=== PATIENT | male | born 1950 | race Caucasian/White ===

== ENCOUNTER → 2020-09-11 | Outpatient (CLI) | payer OTHER | END | disposition home or self-care (01) | LOC: SHCH 08:28 | PROVIDERS: ATTEND Internal Medicine Cardiovascular Disease | DX: I34.0 Nonrheumatic mitral (valve) insufficiency (principal) | CPT/HCPCS: 93306; 93356 ==

== ENCOUNTER 2025-04-08 05:51 | Observation (INO) | payer OTHER, MEDICARE ==
[2025-04-03 11:40] VITALS: BP 156/67; PULSE 53; RESP 17; TEMP 97.8
--- NOTE | 2025-04-03 13:16 | NUR ---
preop hugo rt instructed pt on incentive spirometry
[~2025-04-08] VITALS: Ht 180.3 cm; Wt 90.7 kg
[2025-04-08] VITALS (16 sets, daily range): BP systolic 109–175; BP diastolic 54–75; PULSE 68–90; RESP 14–18; TEMP 97.6–98.8; O2SAT 92
[2025-04-08] MEDS: 0.9%NACL 1000ML 1,000 ML IV ONE (06:08)
[2025-04-08] MEDS ORDERED: TRANEXAMIC ACID 1000MG/10ML ONE (06:25)
[2025-04-08] MEDS ORDERED: MIDAZOLAM HCL 1 MG/ML 2ML VIAL ONE (06:49)
[2025-04-08] MEDS: TRANEXAMIC ACID 1000MG/10ML IV ONE ×3 (07:30→09:07)
[2025-04-08] MEDS ORDERED: FERROUS FUMARATE 324 MG TABLET PO PRN (09:30)
[2025-04-08] MEDS ORDERED: CYCLOBENZAPRINE HCL 10 MG TABLET PO PRN (09:30)
[2025-04-08] MEDS ORDERED: PoTASSium chl 10% ELIXIR 20MEQ 20 MEQ/15 ML UDCUP PO PRN (09:30)
[2025-04-08] MEDS ORDERED: PROMETHAZINE HCL 25 MG/ML 1ML AMPULE IM PRN (09:30)
[2025-04-08] MEDS ORDERED: PoTASSium chloRIDE 20MEQ ER 20 MEQ ERTAB PO PRN (09:30)
[2025-04-08] MEDS ORDERED: GLYCOPYRROLATE 0.2 MG/ML 5 ML VIAL ONE (09:33)
[2025-04-08] MEDS ORDERED: NEOSTIGMINE METHYLSULFATE 1MG/ML IV ONE (09:33)
--- NOTE | 2025-04-08 10:42 | HMCIMG ---
EXAM: CR Left Knee, 2 Views. CLINICAL HISTORY: S/P LEFT TKA SURGERY COMPARISON: None provided. FINDINGS: BONES: No acute fracture or aggressive appearing osseous lesion. Knee implant present JOINTS: The joint spaces show no significant degenerative disease. There is a mild joint effusion appreciated. SOFT TISSUES: The soft tissues are edematous around the knee joint IMPRESSION: Left knee implant present, with no evidence of fracture or dislocation. No acute osseous pathology is evident. Mild soft tissue swelling around the knee joint and mild joint effusion in the suprapatellar bursa, present consequence of postoperative changes /[place]
--- NOTE | 2025-04-08 10:55 | NUR ---
PATIENT ARRIVED TO UNIT. VS: 114/59, 92 %SP02 ON RA, 83 BPM. PATIENT A&OX4. NO PAIN PER PATIENT. PATIENT WAS EDUCATED ON THE IMPORTANCE OF CALLING NURSE WHEN IN PAIN. REINFORCED TEACHING ON IS EVERY 2 HOURS WHILE AWAKE. RT WAS CALLED FOR A NEW IS TO BE BROUGHT TO PATIENTS ROOM. PT WAS MADE AWARE OF PATIENTS ARRIVAL TO THE UNIT.
[2025-04-08] MEDS: 0.9%NACL 1000ML 1,000 ML IV SCH (11:55)
--- NOTE | 2025-04-08 14:42 | OP ---
Operative Note: DATE OF PROCEDURE: 04/08/25 PREOPERATIVE DIAGNOSIS: Left knee osteoarthritis. POSTOPERATIVE DIAGNOSIS: Left knee osteoarthritis. PROCEDURE PERFORMED: Left knee total knee arthroplasty. SURGEON: Virgie Mejia MD SET UP MECHANIC STAMPING MACHINES: Kaz Britton. ANESTHESIA: General with adductor canal block. ANESTHESIA: CARRIAGE RIDER [place] raya. ESTIMATED BLOOD LOSS: 50cc. COMPLICATIONS: None. DRAINS: None. SPECIMENS REMOVED: resected bone. Not sent to pathology. IMPLANTS: [employer] II BCS size 7 Oxinium femur, size 6 tibial base plate, 35 mm patella, 12 mm polyethylene STATEMENT OF MEDICAL NECESSITY: The patient is a 75-year-old male who suffers from left knee osteoarthritis failing conservative management. After discussion of the risks, benefits, and alternatives with the patient, they voluntarily agreed to undergo the aforementioned procedure. DESCRIPTION OF PROCEDURE: Patient was properly identified in the preoperative holding area. Surgical site marking was verified and surgery consent reviewed. The patient was then taken to the operating room and placed in supine position on the OR table. After induction of general anesthesia, preoperative antibiotics were given, all bony prominences were well-padded, and a well padded tourniquet was applied but not inflated at this time. The left lower extremity was then prepped and draped in usual sterile fashion. Surgical time out was done verifying correct surgery, side, site, and location to be performed. We then began the procedure by exsanguinating the limb using an Esmarch and inflating the tourniquet to 350 mmHg. At this point, we made an anterior midline incision using a 10 blade, coming down sharply the level of the fascia. Skin flaps were elevated medially and laterally. We then obtained a clean 10 blade and performed a standard medial parapatellar arthrotomy. We excised the infrapatellar fat pad. We performed our soft tissue releases off of the tibia. We transected the ACL and removed the anterior portion of the medial & lateral meniscus. We then brought the knee into hyperflexion with the patella everted. We used our entry reamer to enter the femoral canal. We then placed our intramedullary cutting guide for our distal femoral cutting block. We then performed our distal femoral osteotomy ensuring appropriate rotation and removed the bony wafer. We then removed these pins and block and then used jig 2 to size the distal femur with the after mentioned size found. We then placed our 5-in-1 cutting block in 3 degrees of external rotation and took our 5 cuts ensuring to protect the patellar tendon and the collateral ligaments. We then removed the cutting block and our bony fragments using a curved osteotome. We then placed our PCL retractor subluxating the tibia anteriorly. Using an extra medullary tibial cutting guide, we hung the block for our proximal tibial cut taking 2 mm off the more diseased portion. Prior to pinning this block in place, we ensured appropriate varus/valgus alignment and posterior slope similar to the [place] slope of the patient's knee. We then performed our proximal tibial osteotomy and removed the bony wafer using Bovie electrocautery to release any remaining soft tissue attachments. We then used our tibial sizing paddle and checked once more for varus & valgus alignment and found this to be appropriate. At this point, we pinned our tibial paddle in place. We then removed the PCL retractor and subluxated the tibia posteriorly while we placed our femoral trial component. We then finished preparing the notch with the reamer and box chisel. The notch portion of the trial femoral component was then placed. A posterior stabilized polyethylene, size 9 trial was placed. This was immediately increased up to a size 11 polyethylene trial due to laxity with varus and valgus stress. The knee was then taken through range of motion and found to have stable full range of motion. We then placed a bump under the ankle and everted the patella to perform our freehand cut of the undersurface the patella. We then sized our patella and reamed to the lug holes for this. We placed our trial patellar component and begin to take the knee through range of motion. The patella had significant lateral tracking that improved after a lateral release. At this point we began removing our trial components and punched the tibial keel prior to removing our tibial trial component. Final components were opened and cement was mixed on the back table while we injected local cocktail in the posterior capsule. We then thoroughly irrigated out the bone and dried the bony surfaces. We cemented our tibial component in place ensuring to remove excess cement and placed our trial polyethylene. We then cemented our femoral component in place once again taking time to ensure excess cement was removed leg was brought into full extension to help squeeze the excess cement from around the femoral component. We then brought the knee back in a flexion to remove this portion of the cement at this point we placed the ankle in a bump thoroughly irrigated off the patellar component and cemented our patellar component in standard fashion again removing excess cement. While we waited for the cement to cure, we thoroughly irrigated out the wound with normal saline. Once our cement had cured, we took the knee through a range of motion and found full and stable range of motion. We then elected to use the size 12 polyethylene and removed our trial polyethylene. We impacted our final polyethylene component in place in standard fashion and took the knee through a range of motion check once more. This was satisfactory so we began to repair the arthrotomy using #5 Ethibond and #1 Vicryl in interrupted [id number] fashion. Subcutaneous tissue was repaired using 2-0 Vicryl. Running subcuticular 3-0 Monocryl stitch with Dermabond placed over this for the skin. We then applied a foam barrier dressing and a pressure dressing consisting of 4 x 4's fluffs and an Luca wrap. The tourniquet was then deflated. Patient was awakened from anesthesia, and they were taken to the recovery room in stable condition. VIRGIE MEJIA MD Apr 08, 2025 14:42
--- NOTE | 2025-04-08 15:15 | NUR ---
ORTHO COORDINATOR: PATIENT SLEEPING. B SCD SLEEVES IN PLACE AND FUNCTIONING.
--- NOTE | 2025-04-08 15:24 | NUR ---
PT WAS SITTING ON THE CHAIR. ASSESSED PT PAIN LEVEL, PT VERBALIZED HE HAS NO PAIN. PT TEACHING WAS REINFORCED TO CALL IF PAIN WAS FELT FOR MEDICATION ADMINISTRATION. PT VERBALIZED UNDERSTANDING. CALL LIGHT WITHIN REACH.
--- NOTE | 2025-04-08 16:16 | NUR ---
PATIENT VERBALIZED HE URINATED IN THE TOILET AND PHYSICAL THERAPY WALKED HIM TO THE BATHROOM.
[2025-04-09] VITALS (8 sets, daily range): BP systolic 128–144; BP diastolic 67–86; PULSE 82–109; RESP 16–18; TEMP 97.8–99; O2SAT 91–100
[2025-04-09 04:09] LABS: NUCLEATED RED BLOOD CELLS 0.0 % (0.0-0.19); PLATELET COUNT (AUTO) 123.0 K/uL (130-400); RED BLOOD CELL COUNT(AUTO) 3.89 MIL/uL (4.50-6.20); RED CELL DISTRIBUTION WIDTH 13.2 % (11.0-15.5); WHITE BLOOD COUNT (AUTO) 7.8 K/uL (4.8-10.8)
[2025-04-09 04:23] LABS: CREATININE 1.0 mg/dL (0.5-1.3); GLOMERULAR FILTR. RATE CALC 78.0 mL/min (>90); GLUCOSE,RANDOM 128.0 mg/dL (70-105); SODIUM SERUM 143.0 mmol/L (136-145); UREA NITROGEN, BLOOD 20.0 mg/dL (7-18)
[2025-04-09] MEDS: EZETIMIBE 10 MG TAB PO SCH (08:24)
[2025-04-09] MEDS: CYANOCOBALAMIN (VITAMIN B-12) 1,000 MCG TABLET PO SCH (08:24)
[2025-04-09] MEDS: ASPIRIN 325MG EC TAB PO SCH (08:24)
[2025-04-09] MEDS: LISINOPRIL 5 MG TABLET PO SCH (08:25)
[2025-04-09] MEDS: EMPAGLIFLOZIN 25MG TABLET PO SCH (08:25)
[2025-04-09] MEDS: HYDROcodone/APAP 5/325 1 TAB TABLET PO PRN (08:25)
--- NOTE | 2025-04-09 11:00 | NUR ---
DCP CM MET WITH PT THIS MORNING, INITIAL ASSESSMENT DONE. PATIENT IS INDEPENDENT PRIOR TO SURGERY, LIVES AT HOME ALONE. AT HOME PATIENT HAS A STANDARD WALKER, CANE. DENIES ANY OTHER EQUIPMENT/SERVICES. FEELS SAFE TO GO BACK HOME, STATED FRIEND ABLE TO ASSIST WITH TRANSPORTATION ONCE READY TO HI. DISCUSSED MD RECOMMENDATIONS FOR HOME W/HH, PT AGREEABLE, REQUESTING SAME HH LAST SURGERY, CONSENT SIGNED [facility] FOR ANY IN [facility]. DCP HOME W/HH ONCE APPROVED. CM TO CONTINUE TO FOLLOW UP.
[2025-04-09] MEDS: CALCIUM CARB 500MG PO PRN (11:39)
--- NOTE | 2025-04-09 12:00 | NUR ---
ORTHO COORDINATOR: TEACHING REGARDING DVT AND PNEUMONIA PREVENTION, PAIN EXPECTATIONS AND PAIN MANAGEMENT. PATIENT DRESSED SITTING ON SIDE OF BED. DRESSING TO L KNEE CLEAN, DRY AND INTACT. PATIENT DRESSED IN STREET CLOTHES. DID NOT SHOWER, ENCOURAGED PATIENT TO SHOWER, RATIONALE PROVIDED. PATIENT INTENDS TO DISCHARGE HOME WITH HOME HEALTH AND UTILIZE SAME AGENCY IN JULY OF THIS YEAR. PATIENT'S PAIN EXPECTATIONS ARE REALISTIC. PATIENT RETURN DEMONSTRATED PROPER USE OF INCENTIVE SPIROMETER AND VERBALIZED PROPER FREQUENCY OF USE. PATIENT RETURN DEMONSTRATED PROPER FOOT FLEXION AND EXTENSION EXERCISES, RATIONALE FOR PERFORMING REVIEWED. PATIENT ENCOURAGED TO CONTINUE PREMEDICATING PRIOR TO PHYSICAL THERAPY AND PERIODS OF HIGH ACTIVITY, TO CONTINUE USE OF INCENTIVE SPIROMETER UNTIL PRESURGERY ACTIVITY LEVELS ACHIEVED. REVIEWED HOME HEALTH PHYSICAL THERAPY PROCESS. PATIENT INFORMED DISCHARGE INSTRUCTIONS WILL PROVIDE DATE DRESSING TO BE REMOVED FROM KNEE. PATIENT FEELS COMFORTABLE REMOVING DRESSING. INCISION CARE INSTRUCTIONS PROVIDED. PATIENT ENCOURAGED TO CONTINUE TO INCREASE ACTIVITY AND KEEP HYDRATED. PATIENT VERBALIZED UNDERSTANDING TO ALL INSTRUCTIONS. NO ADDITIONAL QUESTIONS OR CONCERNS AT THIS TIME. PATIENT ASKING IF HE COULD GO HOME, NO ACCEPTANCE TO AFTERCARE HAS BEEN APPROVED.
--- NOTE | 2025-04-09 19:12 | PN ---
Ortho POD 1 - late entry seen around noon Doing well. Reports pain controlled. Voiding on his own. Tolerating PO. Passing gas. Denies BM or calf pain. vss,af nad, A&Ox3 nonlabored breathing resting comfortably reclined in bed at the time of my visit. left knee dressing c/d/i with mild ecchymosis and edema tolerates full extension with cueing calf soft NT/neg homans H&H: Plt 123 Calcium 7.8 DCP is for HHPT with [place] Ambulated 40 ft with PT yesterday POD 1 s/p L TKA doing well asymptomatic acute blood loss anemia -correct calcium per protocol -encouraged IS and OOBTC -encouraged bathing -continue my routine post op plan for TKA Vitals/Labs Vital Signs Date Time Temp Pulse Resp B/P (MAP) Pulse Ox O2 Delivery O2 Flow Rate FiO2 04/09/25 17:12 97.9 109 18 136/86 94 Room Air 04/09/25 08:29 0 21 Laboratory Tests 04/09/25 03:39 Medications Current Medications Cefazolin Sodium 2 gm STK-MED ONCE .ROUTE; Start 04/08/25 at 06:08; Stop 04/08/25 at 06:08; Status DC Sodium Chloride 1,000 ml @ As Directed STK-MED ONCE IV; Start 04/08/25 at 06:08; Stop 04/08/25 at 06:08; Status DC Tranexamic Acid 1,000 mg STK-MED ONCE .ROUTE; Start 04/08/25 at 06:25; Stop 04/08/25 at 06:25; Status DC Ketorolac Tromethamine 30 mg STK-MED ONCE .ROUTE; Start 04/08/25 at 06:25; Stop 04/08/25 at 06:25; Status DC Ropivacaine 150 mg STK-MED ONCE .ROUTE; Start 04/08/25 at 06:25; Stop 04/08/25 at 06:26; Status DC Propofol 200 mg STK-MED ONCE IV; Start 04/08/25 at 06:49; Stop 04/08/25 at 06:49; Status DC Midazolam HCl 2 mg STK-MED ONCE .ROUTE; Start 04/08/25 at 06:49; Stop 04/08/25 at 06:49; Status DC Rocuronium Royal 50 mg STK-MED ONCE .ROUTE; Start 04/08/25 at 06:49; Stop 04/08/25 at 06:49; Status DC Fentanyl Citrate 100 mcg STK-MED ONCE .ROUTE; Start 04/08/25 at 06:49; Stop 04/08/25 at 06:50; Status DC Morphine Sulfate 10 mg STK-MED ONCE IV; Start 04/08/25 at 07:01; Stop 04/08/25 at 07:01; Status DC Phenylephrine HCl 10 mg STK-MED ONCE IV; Start 04/08/25 at 07:39; Stop 04/08/25 at 07:39; Status DC Hydralazine HCl 20 mg STK-MED ONCE .ROUTE; Start 04/08/25 at 07:49; Stop 04/08/25 at 07:49; Status DC Cefazolin Sodium 2 gm STK-MED ONCE IVPB Last administered on 04/08/25at 07:31; Start 04/08/25 at 07:31; Stop 04/08/25 at 08:03; Status DC Tranexamic Acid 1,000 mg STK-MED ONCE IV Last administered on 04/08/25at 07:30; Start 04/08/25 at 07:30; Stop 04/08/25 at 08:03; Status DC Ropivacaine 150 mg STK-MED ONCE IJ Last administered on 04/08/25at 08:00; Start 04/08/25 at 08:00; Stop 04/08/25 at 08:03; Status DC Tranexamic Acid 1,000 mg STK-MED ONCE IV; Start 04/08/25 at 08:00; Stop 04/08/25 at 08:01; Status Cancel Tranexamic Acid 1,000 mg STK-MED ONCE IV Last administered on 04/08/25at 09:07; Start 04/08/25 at 09:07; Stop 04/08/25 at 09:10; Status DC Ketorolac Tromethamine 30 mg STK-MED ONCE IJ Last administered on 04/08/25at 08:00; Start 04/08/25 at 08:00; Stop 04/08/25 at 09:10; Status DC Ondansetron HCl 4 mg AD PRN IVP; Start 04/08/25 at 09:30; Stop 04/08/25 at 11:00; Status DC Metoclopramide HCl 10 mg AD PRN IVP; Start 04/08/25 at 09:30; Stop 04/08/25 at 11:01; Status DC Promethazine HCl 25 mg AD PRN IM; Start 04/08/25 at 09:30; Stop 04/08/25 at 11:01; Status DC Ketorolac Tromethamine 30 mg AD PRN IV; Start 04/08/25 at 09:30; Stop 04/08/25 at 11:01; Status DC Morphine Sulfate 2 mg AD PRN IVP; Start 04/08/25 at 09:30; Stop 04/08/25 at 11:01; Status DC Fentanyl Citrate 25 mcg Q5MIN PRN IVP Last administered on 04/08/25at 10:06; Start 04/08/25 at 09:30; Stop 04/08/25 at 11:01; Status DC Naloxone HCl 0.1 mg AD PRN IVP; Start 04/08/25 at 09:30; Stop 04/08/25 at 11:01; Status DC Sodium Chloride 1,000 ml @ 100 mls/hr Q10H IV Last administered on 04/08/25at 23:48; Start 04/08/25 at 09:30; Stop 04/09/25 at 09:29; Status DC Polyethylene Glycol 17 gm DAILY PO; Start 04/09/25 at 09:00; Stop 05/09/25 at 08:59 Bisacodyl 10 mg DAILY PRN RC; Start 04/11/25 at 09:30; Stop 05/11/25 at 09:29 Ketorolac Tromethamine 15 mg Q6H PRN IV; Start 04/09/25 at 09:30; Stop 04/14/25 at 09:29 Ferrous Fumarate 324 mg DAILY PRN PO; Start 04/08/25 at 09:30; Stop 05/08/25 at 09:29 Ondansetron HCl 4 mg Q6H PRN IVP; Start 04/08/25 at 09:30; Stop 05/08/25 at 09:29 Calcium Carbonate 500 mg Q12H PRN PO Last administered on 04/09/25at 11:39; Start 04/08/25 at 09:30; Stop 05/08/25 at 09:29 Insulin Human Regular INSULIN SLIDING SCAL... ACHS SQ; Start 04/08/25 at 11:30; Stop 05/08/25 at 11:29 Cefazolin Sodium 2 gm Q8H IVP Last administered on 04/08/25at 21:52; Start 04/08/25 at 14:30; Stop 04/08/25 at 22:31; Status DC Cyclobenzaprine HCl 5 mg Q8H PRN PO; Start 04/08/25 at 09:30; Stop 05/08/25 at 09:29 Gabapentin 100 mg TID PO Last administered on 04/09/25at 14:39; Start 04/08/25 at 14:00; Stop 05/08/25 at 13:59 Aspirin 325 mg DAILY PO Last administered on 04/09/25at 08:24; Start 04/09/25 at 09:00; Stop 05/09/25 at 08:59 Ketorolac Tromethamine 15 mg Q8H IV Last administered on 04/09/25at 01:21; Start 04/08/25 at 09:30; Stop 04/09/25 at 01:31; Status DC Docusate Sodium 100 mg BID PO Last administered on 04/09/25at 08:24; Start 04/08/25 at 21:00; Stop 05/08/25 at 20:59 Potassium Chloride 100 ml @ 100 mls/hr AD PRN IV; Start 04/08/25 at 09:30; Stop 05/08/25 at 09:29 Potassium Chloride 20 meq AD PRN PO; Start 04/08/25 at 09:30; Stop 05/08/25 at 09:29 Potassium Chloride 20 meq AD PRN PO; Start 04/08/25 at 09:30; Stop 05/08/25 at 09:29 Tramadol HCl 50 mg Q6H PRN PO Last administered on 04/09/25at 11:41; Start 04/08/25 at 09:30; Stop 04/13/25 at 09:29 Acetaminophen/ Hydrocodone Bitart Q4H PRN PO Last administered on 04/09/25at 14:39; Start 04/08/25 at 09:30; Stop 04/13/25 at 09:29 Empaglifozin 25 mg DAILY PO Last administered on 04/09/25at 08:25; Start 04/09/25 at 09:00; Stop 05/09/25 at 08:59 EZETIMIBE 10 mg DAILY PO Last administered on 04/09/25at 08:24; Start 04/09/25 at 09:00; Stop 05/09/25 at 08:59 Lisinopril 5 mg DAILY PO Last administered on 04/09/25at 08:25; Start 04/09/25 at 09:00; Stop 05/09/25 at 08:59 Pantoprazole Sodium 40 mg DAILY PO Last administered on 04/09/25at 08:23; Start 04/09/25 at 09:00; Stop 05/09/25 at 08:59 Atorvastatin Calcium 80 mg HS PO Last administered on 04/08/25at 21:52; Start 04/08/25 at 21:00; Stop 05/08/25 at 20:59 Vitamin B Complex 1,000 mcg DAILY PO Last administered on 04/09/25at 08:24; Start 04/09/25 at 09:00; Stop 05/09/25 at 08:59 Home Med DAILY PO; Start 04/09/25 at 09:00; Stop 05/09/25 at 08:59 Glycopyrrolate 1 mg STK-MED ONCE .ROUTE; Start 04/08/25 at 09:33; Stop 04/08/25 at 09:33; Status DC Neostigmine Methylsulfate 10 mg STK-MED ONCE IV; Start 04/08/25 at 09:33; Stop 04/08/25 at 09:33; Status DC Fentanyl Citrate 100 mcg STK-MED ONCE .ROUTE; Start 04/08/25 at 09:59; Stop 04/08/25 at 09:59; Status DC Ketorolac Tromethamine 15 mg STK-MED ONCE .ROUTE; Start 04/08/25 at 10:04; Stop 04/08/25 at 10:04; Status DC SANDI FRAUSTO MD Apr 09, 2025 19:12
[2025-04-10] VITALS (7 sets, daily range): BP systolic 119–160; BP diastolic 70–93; PULSE 89–101; RESP 17–20; TEMP 97.4–98.4; O2SAT 96
--- NOTE | 2025-04-10 17:00 | NUR ---
PATIENT DISCHARGED. IV REMOVED INTACT. ALL BELONGINGS GATHERED BY PATIENT. PRESCRIPTION GIVEN TO PATIENT. AND INSTRUCTIONS ON [facility] AND [facility] FOR PT. ALL QUESTIONS AND CONCERNS ANSWERED. PATIENT TAKEN DOWN VIA WHEELCHAIR TO ALERT AND ORIENTED X 4.
--- NOTE | 2025-04-10 17:02 | NUR ---
CONTACTED [facility] AND REPORT GIVEN TO LAURIE MORALES. ALL QUESTIONS AND CONCERNS ANSWERED.
== END 2025-04-10 17:15 | disposition home health service (06) ==
LOC: DAH 05:51 → DAHIP 05:52 → DAH 05:52 → 4BH 10:55
PROVIDERS: ADMIT Student in an Organized Health Care Education/Training Program; ATTEND Student in an Organized Health Care Education/Training Program
DX: M17.12 Unilateral primary osteoarthritis, left knee (principal); G89.18 Other acute postprocedural pain; D62 Acute posthemorrhagic anemia; E78.5 Hyperlipidemia, unspecified; I10 Essential (primary) hypertension; E11.9 Type 2 diabetes mellitus without complications; I25.2 Old myocardial infarction; I25.10 Atherosclerotic heart disease of native coronary artery without angina pectoris; Z79.899 Other long term (current) drug therapy
CPT/HCPCS: 84134; 86140; 36415 ×2; 87641; 27447; 96374; 96376 ×2; 96375; 64447; 82948 ×12; 73560; 97161; 97116 ×5; 80048; 85027; 97530 ×4; G0378 ×56; A4663; J3010 ×2; J3490 ×5; J7030; J0360; J2250; J2704; J2274; J1885 ×4; J2710; J2795 ×2; J2371; J0690 ×4; A4649 ×2; C1713; C1776; A6255; A5120; A4215; A4223 ×2; A4213; A4222; A4221; A4216